=== PATIENT | male | born 1950 | race Caucasian/White ===

== ENCOUNTER 2020-02-12 12:16 | Emergency (ER) | payer OTHER ==
[~2020-02-12] VITALS: Ht 167.6 cm; Wt 83.0 kg
[2020-02-12] MEDS ORDERED: PRAVASTATIN SOD40 MG PO (12:48)
[2020-02-12] MEDS ORDERED: SYNTHROID50 MCG PO (12:48)
== END 2020-02-12 18:40 | disposition home or self-care (01) ==
LOC: ER 12:16
DX: N13.2 Hydronephrosis with renal and ureteral calculous obstruction (principal)